=== PATIENT | male | born 1970 | race African-American/Black ===

== ENCOUNTER 2017-09-06 13:34 | Emergency (ER) | payer OTHER ==
[2017-09-06] MEDS: HYDROcodone/APAP 5/325MG 1 TAB TABLET PO (15:38)
[2017-09-06] MEDS: IBUPROFEN 800 MG TABLET. PO (15:38)
== END 2017-09-06 17:40 | disposition home or self-care (01) ==
LOC: ER 13:34
DX: S30.0XXA Contusion of lower back and pelvis, initial encounter (principal); G43.909 Migraine, unspecified, not intractable, without status migrainosus; V29.9XXA Motorcycle rider (driver) (passenger) injured in unspecified traffic accident, initial encounter; Y93.89 Activity, other specified; Y99.8 Other external cause status; Y92.410 Unspecified street and highway as the place of occurrence of the external cause
CPT/HCPCS: 72100; 72220; 99284

== ENCOUNTER 2018-11-17 15:11 | Emergency (ER) | payer OTHER ==
[~2018-11-17] VITALS: Ht 188 cm; Wt 158.8 kg
[~2018-11-17 15:11] MED LIST: HYDR-3164 PO; IBUP-1060 PO
[2018-11-17 15:22] VITALS: BP 171/112
[2018-11-17] MEDS ORDERED: CETI10TA22 PO (15:37)
[2018-11-17] MEDS ORDERED: PRED50TA PO (15:37)
[2018-11-17] MEDS ORDERED: MUPI22OI2 TP (15:37)
--- NOTE | 2018-11-17 15:37 | PHYS DOC ---
Past Medical History Past Medical History: Migraines, Seizure Past Surgical History: Other Additional Past Surgical Histo: skin graft to leg Alcohol Use: None Drug Use: None Adult General Chief Complaint Chief Complaint: INSECT BITE HPI HPI Patient is a 47 year old male with history of seizures who presents to the ED today complaining of an insect bite to the forehead that he noted today. Patient denies any fever. Give water patient denies any anaphylactic reaction type symptoms. Review of Systems Review of Systems Constitutional: Denies fever or chills [] Eyes: Denies change in visual acuity, redness, or eye pain [] HENT: Denies nasal congestion or sore throat [] Respiratory: Denies cough or shortness of breath [] Cardiovascular: No additional information not addressed in HPI [] GI: Denies abdominal pain, nausea, vomiting, bloody stools or diarrhea [] : Denies dysuria or hematuria [] Musculoskeletal: Denies back pain or joint pain [] Integument: Reports insect bite to the forehead Neurologic: Denies headache, focal weakness or sensory changes [] All other systems were reviewed and found to be within normal limits, except as documented in this note. Allergies Allergies Allergies Coded Allergies Type Severity Reaction Last Updated Verified No Known Drug Allergies 04/30/13 No Physical Exam Physical Exam Constitutional: Well developed, well nourished, no acute distress, non-toxic appearance. [] HENT: Normocephalic, atraumatic, bilateral external ears normal, oropharynx moist, no oral exudates, nose normal. [] Eyes: PERRLA, EOMI, conjunctiva normal, no discharge. [] Neck: Normal range of motion, no tenderness, supple, no stridor. [] Cardiovascular:Heart rate regular rhythm, no murmur [] Lungs & Thorax: Bilateral breath sounds clear to auscultation [] Abdomen: Bowel sounds normal, soft, no tenderness, no masses, no pulsatile mass es. [] Skin: Warm, dry, forehead with a scabbed over region approximately 0.3 cm x 0.3 cm with slight erythema. No fluctuance. Back: No tenderness, no CVA tenderness. [] Extremities: No tenderness, no cyanosis, no clubbing, ROM intact, no edema. [] Neurologic: Alert and oriented X 3, normal motor function, normal sensory function, no focal deficits noted. [] Psychologic: Affect normal, judgement normal, mood normal. [] EKG EKG [] Radiology/Procedures Radiology/Procedures [] Course & Med Decision Making Course & Med Decision Making Pertinent Labs and Imaging studies reviewed. (See chart for details) This is a 47-year-old male patient who presents to the ED today with an insect bite to the forehead that he noted today but appears older than today. Tetanus is up-to-date. Patient has no anaphylactic reaction type symptoms. We will discharge him with prednisone for 5 days considering it is of the face. Also given Bactroban ointment cream to reduce the risk of infection. Zyrtec also recommended. Follow-up with PCP in one to 2 weeks. Dragon Disclaimer Dragon Disclaimer This electronic medical record was generated, in whole or in part, using a voice recognition dictation system. Departure Departure Impression: Primary Impression: Insect bite Disposition: HOME, SELF-CARE Condition: STABLE Referrals: NO PCP (PCP) follow up with your doctor in 1-2 weeks Patient Instructions: Insect Bite, [id number] Additional Instructions: You were evaluated in the emergency room for an insect bite on the forehead. Use the prescribed medications as ordered. Follow-up with your doctor in 1-2 weeks. Scripts Mupirocin (MUPIROCIN OINTMENT) 22 Gm Oint...g. 1 CASS TP TID for WOUND CARE, #1 TUBE Prov: MITCH BARNEY APRN 11/17/18 Cetirizine Hcl (ZYRTEC) 10 Mg Tablet 1 TAB PO DAILY, #7 TAB 0 Refills Prov: MITCH BARNEY APRN 11/17/18 Prednisone (PREDNISONE) 50 Mg Tablet 1 TAB PO DAILY, #5 TAB Prov: MITCH BARNEY APRN 11/17/18 Problem Qualifiers Primary Impression: Insect bite Encounter type: initial encounter Site of insect bite: head Site of insect bite of head: other part Qualified Codes: S00.96XA - Insect bite (nonvenomous) of unspecified part of head, initial encounter; W57.XXXA - Bitten or stung by nonvenomous insect and other nonvenomous arthropods, initial encounter MITCH BARNEY APRN Nov 17, 2018 15:37
== END 2018-11-17 15:57 | disposition home or self-care (01) ==
LOC: ER 15:11
DX: S00.86XA Insect bite (nonvenomous) of other part of head, initial encounter (principal); G43.909 Migraine, unspecified, not intractable, without status migrainosus; W57.XXXA Bitten or stung by nonvenomous insect and other nonvenomous arthropods, initial encounter; Y93.89 Activity, other specified; Y92.89 Other specified places as the place of occurrence of the external cause; Y99.8 Other external cause status
CPT/HCPCS: 99283

== ENCOUNTER 2019-03-28 10:31 | Emergency (ER) | payer OTHER ==
[~2019-03-28] VITALS: Ht 188 cm; Wt 158.8 kg
[~2019-03-28 10:31] MED LIST changes: +CETI10TA22 PO; +MUPI22OI2 TP; +PRED50TA PO
[2019-03-28 10:47] VITALS: BP 158/79
[2019-03-28] MEDS ORDERED: predniSONE 10 MG TABLET PO ONE (11:15)
[2019-03-28] MEDS ORDERED: guaiFENesin/CODEINE 100mg/10mg 5 ML LIQUID PO PRN (11:15)
[2019-03-28] MEDS ORDERED: IPRATRPIUM/ALBUTEROL 0.5/2.5MG 3 ML NEBU. NEB ONE (11:15)
[2019-03-28 11:42] LABS: INFLUENZA A PATIENT POSITIVE (NEGATIVE); INFLUENZA B PATIENT NEGATIVE (NEGATIVE)
--- NOTE | 2019-03-28 12:00 | RAD ---
AP and Lateral Views of the Chest 03/28/2019 11:09 AM Indication: Influenza, cough Comparison study: Chest radiograph August 25, 2008 Findings: There minimal linear opacities in the left lung base, suggestive of discoid atelectasis. No pneumothorax or pleural effusion is seen. Heart size is normal. Bony thorax is grossly intact. IMPRESSION: Probable mild left basilar discoid atelectasis. No other acute cardiopulmonary process is identified Electronically signed by: Cruz Gould MD (03/28/2019 11:57 AM) [facility]
--- NOTE | 2019-03-28 12:33 | PHYS DOC ---
Past Medical History Past Medical History: Migraines, Seizure Past Surgical History: Other Additional Past Surgical Histo: skin graft to leg Alcohol Use: None Drug Use: None Adult General Chief Complaint Chief Complaint: FLU SYMPTOM HPI HPI Patient is a 48 year old male who presents to the ED today complaining of body aches, fevers and a cough that began 6 days ago. Patient reports he is a smoker Review of Systems Review of Systems Constitutional: Reports fever Eyes: Denies change in visual acuity, redness, or eye pain [] HENT: Denies nasal congestion or sore throat [] Respiratory: Reports cough, denies shortness of breath [] Cardiovascular: No additional information not addressed in HPI [] GI: Denies abdominal pain, nausea, vomiting, bloody stools or diarrhea [] : Denies dysuria or hematuria [] Musculoskeletal: Denies back pain or joint pain [] Integument: Denies rash or skin lesions [] Neurologic: Denies headache, focal weakness or sensory changes [] All other systems were reviewed and found to be within normal limits, except as documented in this note. Current Medications Current Medications Current Medications Medications (Trade) Dose Ordered Sig/Erin Start Time Stop Time Status Last Admin Dose Admin Albuterol/ Ipratropium (Duoneb) 3 ml 1X ONCE 03/28/19 11:15 03/28/19 11:16 DC 03/28/19 11:34 3 ML Guaifenesin/ Codeine Phosphate (Robitussin Ac) 5 ml PRN Q6HRS PRN 03/28/19 11:15 03/28/19 12:04 5 ML Prednisone (Prednisone) 50 mg 1X ONCE 03/28/19 11:15 03/28/19 11:16 DC 03/28/19 12:04 50 MG Allergies Allergies Allergies Coded Allergies Type Severity Reaction Last Updated Verified No Known Drug Allergies 04/30/13 No Physical Exam Physical Exam Constitutional: Well developed, well nourished, no acute distress, non-toxic appearance. [] HENT: Normocephalic, atraumatic, bilateral external ears normal, oropharynx moist, no oral exudates, nose normal. [] Eyes: PERRLA, EOMI, conjunctiva normal, no discharge. [] Neck: Normal range of motion, no tenderness, supple, no stridor. [] Cardiovascular:Heart rate regular rhythm, no murmur [] Lungs & Thorax: Bilateral breath sounds clear to auscultation [] Abdomen: Bowel sounds normal, soft, no tenderness, no masses, no pulsatile masses. [] Skin: Warm, dry, no erythema, no rash. [] Back: No tenderness, no CVA tenderness. [] Extremities: No tenderness, no cyanosis, no clubbing, ROM intact, no edema. [] Neurologic: Alert and oriented X 3, normal motor function, normal sensory function, no focal deficits noted. [] Psychologic: Affect normal, judgement normal, mood normal. [] Current Patient Data Vital Signs Vital Signs Date Time Temp Pulse Resp B/P (MAP) Pulse Ox O2 Delivery O2 Flow Rate FiO2 03/28/19 11:37 98 Room Air 03/28/19 10:47 98.2 98 16 158/79 (105) 98.2 Lab Values Laboratory Tests Test 03/28/19 10:45 Influenza Type A Antigen Positive (NEGATIVE) Influenza Type B Antigen Negative (NEGATIVE) EKG EKG [] Radiology/Procedures Radiology/Procedures []PROCEDURE: CHEST PA & LATERAL AP and Lateral Views of the Chest 03/28/2019 11:09 AM Indication: Influenza, cough Comparison study: Chest radiograph August 25, 2008 Findings: There minimal linear opacities in the left lung base, suggestive of discoid atelectasis. No pneumothorax or pleural effusion is seen. Heart size is normal. Bony thorax is grossly intact. IMPRESSION: Probable mild left basilar discoid atelectasis. No other acute cardiopulmonary process is identified Electronically signed by: Cruz Abbasi MD (03/28/2019 11:57 AM) [facility] DICTATED and SIGNED BY: CRUZ ABBASI MD DATE: 03/28/19 1157 Course & Med Decision Making Course & Med Decision Making Pertinent Labs and Imaging studies reviewed. (See chart for details) This is a 48-year-old male patient presenting to the ED today with body aches, fevers and a cough for 6 days. Positive for influenza A Negative chest x-ray Patient is a smoker encouraged to consider smoking cessation Discharge with supportive care measures including instructions to push fluids, rest, given prescription for prednisone, albuterol inhaler. Also given 80 ml of codeine with promethazine. F/u with PCP next week Encouraged to consider smoking cessation Dragon Disclaimer Dragon Disclaimer This electronic medical record was generated, in whole or in part, using a voice recognition dictation system. Departure Departure Impression: Primary Impression: Influenza A Additional Impressions: Cough Smoking addiction Disposition: 01 HOME, SELF-CARE Condition: STABLE Referrals: NO PCP (PCP) follow up in one week with your doctor Patient Instructions: Cough, Adult, [id number], Influenza A (H1N1) Additional Instructions: You were elevated in the emergency room and noted to have influenza A. You have been sick for more than 2 days, supportive care measures are recommended at this point. Take the prescribed medications as ordered. Please follow-up with your doctor next week. Please rest, push fluids. Take Tylenol/Motrin for pain or fever. Scripts Albuterol Sulfate (VENTOLIN HFA INHALER) 18 Gm Hfa.aer.ad 2 PUFF INH Q4HRS for FOR ASTHMA, #1 INHALER 0 Refills Prov: MITCH BARNEY APRN 03/28/19 Promethazine HCl/Codeine (Prometh-Codein 6.25-10 mg/5 ml) 5 Ml Syrup 5 ML PO Q6-8HRS PRN for cough MDD 30 Milliliter(s), #80 ML 0 Refills Prov: MITCH BARNEY APRN 03/28/19 Prednisone (PREDNISONE) 50 Mg Tablet 1 TAB PO DAILY, #5 TAB Prov: MITCH BARNEY APRN 03/28/19 Problem Qualifiers MITCH BARNEY APRN Mar 28, 2019 12:33
[2019-03-28] MEDS ORDERED: VENTOLIN HFA18 GM INH (12:43)
[2019-03-28] MEDS ORDERED: PROM5SYR2 PO (12:43)
[2019-03-28] MEDS ORDERED: PRED50TA PO (12:43)
== END 2019-03-28 13:02 | disposition home or self-care (01) ==
LOC: ER 10:31
DX: J10.1 Influenza due to other identified influenza virus with other respiratory manifestations (principal); G43.909 Migraine, unspecified, not intractable, without status migrainosus; F17.200 Nicotine dependence, unspecified, uncomplicated
CPT/HCPCS: 71046; 87804; 99285; J7512; J7620

== ENCOUNTER 2020-12-10 15:39 | Emergency (ER) | payer OTHER ==
[~2020-12-10] VITALS: Ht 190.5 cm; Wt 159.0 kg
[~2020-12-10 15:39] MED LIST changes: -CETI10TA22 PO; +CETI10TA74 PO; +PROM5SYR2 PO; +VENTOLIN HFA18 GM INH
[2020-12-10] MEDS ORDERED: IV NORMAL SALINE 1000ML BAG 1,000 ML IV ONE ×2 (17:15→18:15)
[2020-12-10] MEDS ORDERED: ACETAMINOPHEN 500 MG TABLET PO ONE (17:15)
--- NOTE | 2020-12-10 17:17 | ED.ADGEN ---
Past Medical History Past Medical History: Migraines, Seizure Past Surgical History: Other Additional Past Surgical Histo: skin graft to leg Smoking Status: Never Smoker Alcohol Use: None Drug Use: None General Adult EDM: Chief Complaint: CHEST PAIN HPI: HPI: Patient is a 50 year old male coming in for chest pain, shortness of breath, cough, and body aches. Patient was diagnosed with COVID-19 approximately 1 week ago but said he had been feeling sick for the past 2 to 3 weeks. Is now taking medications at home. Denies any past medical history presents ER physician r genevievely. Did not get a Covid vaccines. Denies any GI complaints. Review of Systems: Review of Systems: All other systems within normal limits except for as noted in the HPI general: + fevers , no chills, no general weakness Eyes: no blurred vision, no diplopia Skin: no rashes Neck: no swelling, no neck stiffness, no neck pain Heme: no bleeding, no lymph node enlargement Ear/Nose/Throat: No sore throat, no runny nose, no hearing loss, no difficulty swallowing Cardiovascular: no Chest pain, no palpitations Respiratory: + dyspnea, + cough, no hemoptysis Gastrointestinal: No abdominal pain, no nausea, no vomiting, no diarrhea, no blood in stool Genitourinary: no dysuria, no hematuria Musculoskeletal: no back pain, no leg pain, no arm pain, no arthralgia Neurologic: no headaches, no dizziness, no focal numbness/tingling, no focal weakness Psych: no depression, no anxiety, no SI/HI *All review of systems are negative other than what is noted above Current Medications: Current Medications Medications (Trade) Dose Ordered Sig/Erin Start Time Stop Time Status Last Admin Dose Admin Acetaminophen (Tylenol) 1,000 mg 1X ONCE 12/10/20 17:15 12/10/20 17:16 DC 12/10/20 17:38 1,000 MG Iohexol (Omnipaque 350 Mg/ml) 100 ml 1X ONCE 12/10/20 17:45 12/10/20 17:46 DC 12/10/20 17:15 100 ML Sodium Chloride 1,000 ml @ 1,000 mls/hr 1X ONCE 12/10/20 18:15 12/10/20 19:14 DC Allergies: Allergies: Allergies Coded Allergies Type Severity Reaction Last Updated Verified No Known Drug Allergies 04/30/13 No Physical Exam: PE: Constitutional: Well developed, well nourished, no acute distress, non-toxic appearance. [] HENT: Normocephalic, atraumatic, bilateral external ears normal, nose normal. [] Eyes: PERRLA, conjunctiva normal, no discharge. [] Neck: No rigidity, supple, no stridor. [] Cardiovascular: Tachycardic, regular rhythm, brisk cap refill [] Lungs & Thorax: Non labored symmetric respirations, mild tachypnea, no retractions [] Abdomen: Soft, nondistended. Skin: Warm, dry, no erythema, no rash. [] Back: Unremarkable Extremities: No deformities, range of motion grossly intact, no lower extremity edema [] Neurologic: Alert and oriented X 3, no focal deficits noted. [] Psychologic: Affect normal, judgement normal, mood normal. [] Gen-well appearing, no acute distress Head: Normocephalic/Atraumatic ENT: atraumatic, PERRLA, EOMI, oropharynx clear Neck: supple, full ROM/strength, no JVD, no nuchal rigidity Lungs: no distress, speaks in full sentences, Clear to auscultation bilaterally CV: reg rate, rhythm, no murmus/rubs/gallops, peripheral pulses equal in all extremities Abdomen: soft/nontender, no guarding/rebound tenderness, no rigidity, non dist ended, normoactive bowel sounds Musculoskeletal: full ROM/strength in all extremities, atraumatic, no swelling Back: full range of motion/strength Skin: intact, no rashes Lymph: no gross PRESTON Neuro: alert and oriented x 4, CN 2-12 grossly intact, Motor strength is 5/5 in all extremities, no focal sensory deficits, no focal ataxia, ambulatory with steady gait Psych: normal mood/affect Current Patient Data: Labs: Laboratory Tests Test 12/10/20 17:20 12/10/20 18:40 White Blood Count 4.5 x10^3/uL (4.0-11.0) Red Blood Count 4.62 x10^6/uL (4.30-5.70) Hemoglobin 14.3 g/dL (13.0-17.5) Hematocrit 42.1 % (39.0-53.0) Mean Corpuscular Volume 91 fL (79-100) Mean Corpuscular Hemoglobin 31 pg (25-35) Mean Corpuscular Hemoglobin Concent 34 g/dL (31-37) Red Cell Distribution Width 15.5 % (11.5-14.5) H Platelet Count 120 x10^3/uL (140-400) L Neutrophils (%) (Auto) 83 % (31-73) H Lymphocytes (%) (Auto) 10 % (24-48) L Monocytes (%) (Auto) 7 % (0-9) Eosinophils (%) (Auto) 0 % (0-3) Basophils (%) (Auto) 1 % (0-3) Neutrophils # (Auto) 3.7 x10^3/uL (1.8-7.7) Lymphocytes # (Auto) 0.4 x10^3/uL (1.0-4.8) L Monocytes # (Auto) 0.3 x10^3/uL (0.0-1.1) Eosinophils # (Auto) 0.0 x10^3/uL (0.0-0.7) Basophils # (Auto) 0.0 x10^3/uL (0.0-0.2) Sodium Level 137 mmol/L (136-145) Potassium Level 3.8 mmol/L (3.5-5.1) Chloride Level 103 mmol/L (98-107) Carbon Dioxide Level 26 mmol/L (21-32) Anion Gap 8 (6-14) Blood Urea Nitrogen 14 mg/dL (8-26) Creatinine 1.6 mg/dL (0.7-1.3) H Estimated GFR (Cockcroft-Gault) 55.9 BUN/Creatinine Ratio 9 (6-20) Glucose Level 108 mg/dL (70-99) H Lactic Acid Level 1.4 mmol/L (0.4-2.0) Calcium Level 7.8 mg/dL (8.5-10.1) L Magnesium Level 1.8 mg/dL (1.8-2.4) Total Bilirubin 0.4 mg/dL (0.2-1.0) Aspartate Amino Transferase (AST) 39 U/L (15-37) H Alanine Aminotransferase (ALT) 89 U/L (16-63) H Alkaline Phosphatase 89 U/L (46-116) Troponin I Quantitative < 0.017 ng/mL (0.000-0.055) WF-Udr-X-Type Natriuretic Peptide 20 pg/mL (0-124) Total Protein 7.1 g/dL (6.4-8.2) Albumin 3.0 g/dL (3.4-5.0) L Albumin/Globulin Ratio 0.7 (1.0-1.7) L D-Dimer (Jaymie) 0.35 ug/mlFEU (0.00-0.50) Laboratory Tests 12/10/20 17:20 Laboratory Tests 12/10/20 17:20 Vital Signs: Vital Signs Date Time Temp Pulse Resp B/P (MAP) Pulse Ox O2 Delivery O2 Flow Rate FiO2 12/10/20 16:29 103.2 127 24 117/56 (105) 96 Room Air 103.2 EKG: EKG: Sinus tachycardia, heart rate 126 bpm, normal axis, no ST elevation or depression, borderline QT prolongation [] Heart Score: C/O Chest Pain: Yes HEART Score for Chest Pain: HEART Score for Chest Pain Response (Comments) Value History Slighlty/Non-Suspicious 0 ECG Nonspecific Repolarizatio 1 Age >45 - < 65 1 Risk Factors 1 or 2 Risk Factors 1 Troponin < Normal Limit 0 Total 3 Risk Factors: Risk Factors: DM, Current or recent (<one month) smoker, HTN, HLP, family history of CAD, obesity. Risk Scores: Score 0 - 3: 2.5% MACE over next 6 weeks - Discharge Home Score 4 - 6: 20.3% MACE over next 6 weeks - Admit for Clinical Observation Score 7 - 10: 72.7% MACE over next 6 weeks - Early Invasive Strategies Radiology/Procedures: Radiology/Procedures: [] Course & Med Decision Making: Course & Med Decision Making Pending CTA at shift change, care transition to Dr. Razo 50-year-old male presented to the emergency department with Covid pneumonia, fever and atypical chest pain shortness of breath that I believe is related to that, the per differential diagnosis entertained include but not limited to bacterial pneumonia, another upper respiratory infection, COVID-19, unlikely ACS, PE, dissection, pneumothorax, my colleague on the dayshift had done a CT angiogram of the chest abdomen abundance of caution, it is negative for PE, his room air O2 sat is 94%, clinically improved, his troponins were negative, nonischemic appearing EKG and I do believe there is an alternative diagnosis, COVID-19 pneumonia, he was given steroids, believe he is stable for discharge for close outpatient primary care follow-up at this time Jamil Disclaimer: Jamil Disclaimer: This electronic medical record was generated, in whole or in part, using a voice recognition dictation system. Departure Departure Impression: Primary Impression: Pneumonia due to COVID-19 virus Disposition: HOME / SELF CARE / HOMELESS Condition: IMPROVED Referrals: NO PCP (PCP) FRANCESCA BURNHAM MD Patient Instructions: Pneumonia, Adult Additional Instructions: You have COVID-19 pneumonia, I recommend that you follow-up with a primary care doctor in the next 48 hours, return to the nearest emergency room before then if any new or worsening/concerning symptoms develop, if you do not have a primary care doctor I gave you a list of local clinics that you can establish primary care Scripts Azithromycin (ZITHROMAX) 250 Mg Tablet 250 MG PO as directed for ANTI-BIOTIC, #6 TAB 0 Refills Take 2 PO x 1 days Then take 1 PO q 24 hour for the next 4 days Prov: RHIANNA RAZO MD 12/10/20 Methylprednisolone (MEDROL) 4 Mg Tab.ds.pk 1 PKG PO UD for inflammation, #1 PKG Prov: RHIANNA RAZO MD 12/10/20 MATTHEW RICK MD Dec 10, 2020 17:17 RHIANNA RAZO MD Dec 10, 2020 19:32
--- NOTE | 2020-12-10 17:29 | EKG ---
[facility] [address] [place] [address] Test Date: 2020-12-10 Test Time: 16:32:15 Pat Name: BOGDAN HOLGUIN Department: Room: Gender: M Vehicle [employer]: : 1970 Requested By: MATTHEW RICK Order Number: [id number] Reading MD: Measurements Intervals [place] Rate: 126 P: -28 ID: [id number] QRS: 107 QRSD: 98 T: 32 QT: 288 QTc: 424 Interpretive Statements SINUS TACHYCARDIA RIGHTWARD AXIS OTHERWISE NORMAL ECG RI6.02 No previous ECG available for comparison
[2020-12-10 17:30] LABS: BASO % 1 % (0-3); EOS % 0 % (0-3); HEMATOCRIT 42.1 % (39.0-53.0); HEMOGLOBIN 14.3 g/dL (13.0-17.5); LYMPH # 0.4 x10^3/uL (1.0-4.8); LYMPH % 10 % (24-48); MEAN CORPUSCULAR HEMOGLOBIN 31 pg (25-35); MEAN CORPUSCULAR HGB CONC 34 g/dL (31-37); MEAN CORPUSCULAR VOLUME 91 fL (79-100); MONO # 0.3 x10^3/uL (0.0-1.1); MONO % 7 % (0-9); NEUT # 3.7 x10^3/uL (1.8-7.7); NEUT % 83 % (31-73); PLATELET COUNT 120 x10^3/uL (140-400); RED BLOOD COUNT 4.62 x10^6/uL (4.30-5.70); RED CELL DISTRIBUTION WIDTH 15.5 % (11.5-14.5); WHITE BLOOD COUNT 4.5 x10^3/uL (4.0-11.0)
[2020-12-10 17:43] LABS: CALCIUM 7.8 mg/dL (8.5-10.1); CREATININE 1.6 mg/dL (0.7-1.3); GFR 55.9; POTASSIUM 3.8 mmol/L (3.5-5.1)
[2020-12-10] MEDS ORDERED: IOHEXOL 350 MG/ML 100 ML VIAL. IV ONE (17:45)
[2020-12-10 18:00] LABS: ALBUMIN/GLOBULIN RATIO 0.7 (1.0-1.7); MAGNESIUM 1.8 mg/dL (1.8-2.4); TOTAL BILIRUBIN 0.4 mg/dL (0.2-1.0); TOTAL PROTEIN 7.1 g/dL (6.4-8.2)
--- NOTE | 2020-12-10 18:43 | RAD ---
CTA CHEST INDICATION: SOA, covid, pe Comparison: Chest radiograph 1211. TECHNIQUE: Following the uneventful administration of intravenous contrast, 90 cc Omnipaque 350, axia l CT sections were obtained through the lungs and upper abdomen. Multiplanar reconstructions and MIP images were obtained. PQRS compliance statement: One or more of the following individualized dose reduction techniques were utilized for this examinat ion: 1. Automated exposure control 2. Adjustment of the mA and/or kV according to patient size 3. Use of iterative reconstruction technique FINDINGS: Pulmonary arteries: No evidence of pulmonary thromboembolic disease. Lungs and Airways: Patchy bilateral consolidations. No abnormality of the central airways. Pleura: The pleural spaces are normal. Heart and Mediastinum: The visualized thyroid is normal in size and attenuation. No axillary or supra clavicular lymphadenopathy. No mediastinal, hilar or retrocrural lymphadenopathy. The heart and peric ardium are within normal limits. The great vessels of the thorax are normal. Abdomen: Limited images through the upper abdomen show no abnormality of the visualized organs. Bones and Soft Tissues: No acute osseous abnormality. Right greater than left gynecomastia. IMPRESSION: 1. No evidence of pulmonary thromboembolic disease. 2. Patchy bilateral consolidations, consistent with patient's history of infection. Electronically signed by: Jose Dutton MD (12/10/2020 6:40 PM) [facility]
[2020-12-10] MEDS ORDERED: METH4TAB2 PO (19:31)
[2020-12-10] MEDS ORDERED: AZIT250T PO (19:31)
[2020-12-10 20:05] VITALS: BP 162/116
== END 2020-12-10 20:05 | disposition home or self-care (01) ==
LOC: ER 15:39
DX: U07.1 COVID-19 (principal); J12.82 Pneumonia due to coronavirus disease 2019
CPT/HCPCS: 36415; 71275; 80053; 83605; 83735; 83880; 84484; 85025; 85379; 87040; 93005; 96360; 96361; 99285; J7030; Q9967